=== PATIENT | female | born 1985 | race Caucasian/White ===

== ENCOUNTER 2017-07-28 02:53 | Inpatient (IN) | payer BC, OTHER ==
[~2017-07-28] VITALS: Ht 162.6 cm; Wt 68.9 kg
[2017-07-28 04:00] VITALS: BP 131/80
[2017-07-28] MEDS ORDERED: BUPRENORPHINE HCL 2 MG TAB.SUBL SL PRN (04:30)
[2017-07-28] MEDS ORDERED: ONDANSETRON 4 MG/2 ML VIAL IM PRN (04:30)
[2017-07-28] MEDS ORDERED: ONDANSETRON ODT 4 MG TAB.RAPDIS SL PRN (04:30)
[2017-07-28] MEDS ORDERED: ACETAMINOPHEN 325 MG TABLET PO PRN (04:30)
[2017-07-28] MEDS ORDERED: DICYCLOMINE HCL 20 MG TABLET PO PRN (04:30)
[2017-07-28] MEDS ORDERED: LOPERAMIDE HCL 2 MG CAPSULE PO PRN ×2 (04:30)
[2017-07-28] MEDS ORDERED: MAG HYDROX/AL HYDROX/SIMETH 30 ML LIQUID UDC PO PRN (04:30)
[2017-07-28] MEDS ORDERED: MIRALAX 17 GM POWD.PACK PO PRN (04:30)
[2017-07-28] MEDS ORDERED: diphenhydrAMINE 50 MG CAPSULE PO PRN (04:30)
[2017-07-28] MEDS ORDERED: MAGNESIUM HYDROXIDE 30 ML LIQUID UDC PO PRN (04:30)
[2017-07-28 04:45] LABS: *URINE HCG, QUAL NEGATIVE (NEGATIVE)
[2017-07-28] MEDS: IBUPROFEN 600 MG TABLET PO PRN (04:51)
[2017-07-28] MEDS: METHOCARBAMOL 750 MG TABLET PO PRN (04:51)
[2017-07-28 04:53] LABS: *AMPHETAMINE, URINE POSITIVE (NEGATIVE); *BARBITURATE, URINE NEGATIVE (NEGATIVE); *CANNABINOID, URINE NEGATIVE (NEGATIVE); *COCCAINE, URINE NEGATIVE (NEGATIVE); *OPIATE, URINE POSITIVE (NEGATIVE); *PHENCYCLIDINE SCREEN,URINE NEGATIVE (NEGATIVE)
[2017-07-28] MEDS ORDERED: CLON1PAT TD (05:31)
[2017-07-28 08:00] VITALS: BP 104/62
[2017-07-28] MEDS: MULTIVITAMINS,THERAPEUTIC TABLET PO SCH (09:06)
[2017-07-28] MEDS ORDERED: HYDROXYZINE PAMOATE 25 MG CAPSULE PO PRN (09:30)
[2017-07-28] MEDS ORDERED: LORAZEPAM 1 MG TABLET PO PRN (09:30)
[2017-07-28] MEDS ORDERED: CLONIDINE HCL 0.1 MG TABLET PO PRN (09:30)
[2017-07-28] MEDS ORDERED: GABA-532 PO (09:44)
[2017-07-28 10:18] LABS: ETHANOL < 3 MG/DL (0-0)
[2017-07-28 10:22] LABS: BASOPHILS % (AUTO) 0.3 % (0.0-2.0); EOSINOPHILS # (AUTO) 0.7 K/uL (0.0-0.7); EOSINOPHILS % (AUTO) 6.6 % (0.0-7.0); HEMATOCRIT 40.8 % (31.2-41.9); HEMOGLOBIN 13.5 g/dL (10.9-14.3); LYMPHOCYTES # (AUTO) 3.6 K/uL (20.0-40.0); LYMPHOCYTES % (AUTO) 32.4 % (20.5-51.5); MEAN CORPUSCULAR HGB CONC 33 g/dL (32.3-35.6); MEAN CORPUSCULAR VOLUME 84.4 fL (75.5-95.3); MONOCYTES # (AUTO) 0.8 K/uL (2.0-10.0); MONOCYTES % (AUTO) 6.8 % (0.0-11.0); NEUTROPHILS % (AUTO) 53.9 % (38.5-71.5); PLATELET COUNT (AUTO) 343 K/uL (179-408); RED BLOOD CELL COUNT(AUTO) 4.83 MIL/uL (3.63-4.92); WHITE BLOOD COUNT (AUTO) 11.2 K/uL (3.8-11.8)
[2017-07-28 10:25] LABS: ALANINE AMINOTRANSFERASE 36 U/L (14-59); ALKALINE PHOSPHATASE 82 U/L (50-136); AMYLASE 22 U/L (25-115); ASPARTATE AMINOTRANSFERASE 42 U/L (15-37); BILIRUBIN,TOTAL 0.2 mg/dL (0.2-1.0); CARBON DIOXIDE 26 mmol/L (21-32); CHLORIDE 107 mmol/L (98-107); CREATININE 0.7 mg/dL (0.6-1.3); GLUCOSE 105 mg/dL (74-106); LIPASE 100 U/L (73-393); MAGNESIUM 1.9 mg/dL (1.8-2.4); POTASSIUM 3.9 mmol/L (3.5-5.1); TOTAL PROTEIN, SERUM 6.2 g/dL (6.4-8.2); UREA NITROGEN, BLOOD 11 mg/dL (7-18)
[2017-07-28 10:36] LABS: THYROID STIMULATING HORMONE 0.949 mIU/mL (0.358-3.740)
[2017-07-28 12:00] VITALS: BP 117/75
[2017-07-28] MEDS: BUPRENORPHINE HCL 2 MG TAB.SUBL SL SCH ×3 (12:02→21:36)
[2017-07-28 16:00] VITALS: BP 132/88
[2017-07-28 20:00] VITALS: BP 109/63
[2017-07-28] MEDS: GABAPENTIN 300 MG CAPSULE PO SCH (21:35)
[2017-07-29] VITALS: BP 115/65
[2017-07-29 04:00] VITALS: BP 123/67
[2017-07-29 08:00] VITALS: BP 127/85
[2017-07-29 08:07] LABS: HEPATITIS B SURFACE AG Negative (Negative)
[2017-07-29] MEDS: GABAPENTIN 300 MG CAPSULE PO SCH ×3 (08:55→21:07)
[2017-07-29] MEDS: MULTIVITAMINS,THERAPEUTIC TABLET PO SCH (08:55)
[2017-07-29] MEDS ORDERED: TUBERCULIN,PURIF.PROT.DERIV. 5 TU/0.1 ML TEST ID ONE (09:00)
[2017-07-29] MEDS ORDERED: BUPRENORPHINE HCL 2 MG TAB.SUBL SL SCH (09:00)
[2017-07-29] MEDS: IBUPROFEN 600 MG TABLET PO PRN (09:02)
[2017-07-29 12:00] VITALS: BP 118/65
[2017-07-29] MEDS: BUPRENORPHINE HCL 2 MG TAB.SUBL SL SCH ×2 (14:09→21:06)
[2017-07-29] MEDS: KETOROLAC TROMETHAMINE 30 MG INJ IM PRN (14:17)
[2017-07-29 16:00] VITALS: BP 91/53
[2017-07-29 20:00] VITALS: BP 116/75
[2017-07-29] MEDS: AMOXICILLIN-CLAVUL 875-125MG TABLET PO SCH (21:06)
[2017-07-29] MEDS: LACTOBACILLUS RHAMNOSUS GG 1 EACH CAPSULE PO SCH (21:06)
[2017-07-29] MEDS: BENZOCAINE ORAL CARE 12 ML BOTTLE MM PRN (21:07)
[2017-07-30] VITALS: BP 108/73
[2017-07-30 04:00] VITALS: BP 105/63
[2017-07-30 08:00] VITALS: BP 80/52
[2017-07-30] MEDS: LACTOBACILLUS RHAMNOSUS GG 1 EACH CAPSULE PO SCH ×2 (08:38→20:14)
[2017-07-30] MEDS: BENZOCAINE ORAL CARE 12 ML BOTTLE MM PRN ×2 (08:39→20:15)
[2017-07-30] MEDS: AMOXICILLIN-CLAVUL 875-125MG TABLET PO SCH ×2 (08:39→20:14)
[2017-07-30] MEDS: MULTIVITAMINS,THERAPEUTIC TABLET PO SCH (08:39)
[2017-07-30] MEDS: GABAPENTIN 300 MG CAPSULE PO SCH ×2 (08:39→14:29)
[2017-07-30] MEDS: BUPRENORPHINE HCL 2 MG TAB.SUBL SL SCH ×3 (08:40→20:14)
[2017-07-30] MEDS: KETOROLAC TROMETHAMINE 30 MG INJ IM PRN ×2 (08:52→20:15)
[2017-07-30] MEDS: METHOCARBAMOL 750 MG TABLET PO PRN (08:52)
[2017-07-30 12:00] VITALS: BP 94/60
[2017-07-30] MEDS: DICYCLOMINE HCL 20 MG TABLET PO SCH ×2 (14:29→20:13)
[2017-07-30] MEDS: BACLOFEN 10 MG TABLET PO SCH ×2 (14:29→20:13)
[2017-07-30] MEDS: IBUPROFEN 600 MG TABLET PO PRN (14:29)
[2017-07-30 16:00] VITALS: BP 117/70
[2017-07-30 20:00] VITALS: BP 110/70
[2017-07-30] MEDS: CLONIDINE HCL 0.1 MG TABLET PO SCH (20:13)
[2017-07-30] MEDS ORDERED: GABAPENTIN 300 MG CAPSULE PO SCH (21:00)
[2017-07-31] VITALS: BP 114/65
[2017-07-31 04:00] VITALS: BP 110/67
[2017-07-31 08:00] VITALS: BP 94/63
[2017-07-31] MEDS: GABAPENTIN 300 MG CAPSULE PO SCH ×3 (08:51→20:13)
[2017-07-31] MEDS: CLONIDINE HCL 0.1 MG TABLET PO SCH ×3 (08:52→20:13)
[2017-07-31] MEDS: MULTIVITAMINS,THERAPEUTIC TABLET PO SCH (08:52)
[2017-07-31] MEDS: BACLOFEN 10 MG TABLET PO SCH (08:53)
[2017-07-31] MEDS: LACTOBACILLUS RHAMNOSUS GG 1 EACH CAPSULE PO SCH ×2 (08:53→20:13)
[2017-07-31] MEDS: AMOXICILLIN-CLAVUL 875-125MG TABLET PO SCH ×2 (08:53→20:14)
[2017-07-31] MEDS: DICYCLOMINE HCL 20 MG TABLET PO SCH ×3 (08:53→20:13)
[2017-07-31] MEDS: BENZOCAINE ORAL CARE 12 ML BOTTLE MM PRN (08:54)
[2017-07-31] MEDS ORDERED: BUPRENORPHINE HCL 2 MG TAB.SUBL SL SCH (09:00)
[2017-07-31 12:00] VITALS: BP 94/61
[2017-07-31] MEDS: ALBUTEROL SULFATE 1.25 MG/3 ML NEBU NEB PRN (13:28)
[2017-07-31] MEDS: BUPRENORPHINE HCL 2 MG TAB.SUBL SL SCH ×2 (14:12→20:12)
[2017-07-31] MEDS: BACLOFEN 20 MG TABLET PO SCH ×2 (14:12→20:13)
[2017-07-31 16:31] VITALS: BP 104/56
[2017-07-31] MEDS ORDERED: BACL20TA PO (16:56)
[2017-07-31] MEDS ORDERED: CLON0.1T14 PO (16:56)
[2017-07-31] MEDS ORDERED: GABA-534 PO (16:56)
[2017-07-31] MEDS ORDERED: HYDR-3895 PO (16:56)
[2017-07-31] MEDS ORDERED: IBUP-1955 PO (16:56)
[2017-07-31] MEDS ORDERED: DICY20TA28 PO (16:56)
[2017-07-31] MEDS ORDERED: DIPH50CA37 PO (16:56)
[2017-07-31] MEDS ORDERED: ONDA4TAB11 SL (16:56)
[2017-07-31] MEDS: IBUPROFEN 600 MG TABLET PO PRN (17:01)
[2017-07-31 20:00] VITALS: BP 106/63
[2017-08-01] VITALS: BP 102/66
[2017-08-01 04:00] VITALS: BP 106/67
[2017-08-01 08:00] VITALS: BP 101/67
[2017-08-01] MEDS: LACTOBACILLUS RHAMNOSUS GG 1 EACH CAPSULE PO SCH ×2 (08:29→21:14)
[2017-08-01] MEDS: CLONIDINE HCL 0.1 MG TABLET PO SCH ×2 (08:29→14:12)
[2017-08-01] MEDS: GABAPENTIN 300 MG CAPSULE PO SCH ×3 (08:31→21:14)
[2017-08-01] MEDS: BACLOFEN 20 MG TABLET PO SCH ×3 (08:31→21:12)
[2017-08-01] MEDS: DICYCLOMINE HCL 20 MG TABLET PO SCH ×3 (08:31→21:14)
[2017-08-01] MEDS: MULTIVITAMINS,THERAPEUTIC TABLET PO SCH (08:31)
[2017-08-01] MEDS: KETOROLAC TROMETHAMINE 30 MG INJ IM PRN ×3 (08:34→22:04)
[2017-08-01] MEDS: AMOXICILLIN-CLAVUL 875-125MG TABLET PO SCH ×2 (08:40→21:59)
[2017-08-01] MEDS ORDERED: BUPRENORPHINE HCL 2 MG TAB.SUBL SL SCH ×3 (09:00→21:00)
[2017-08-01] MEDS: ALBUTEROL SULFATE 1.25 MG/3 ML NEBU NEB PRN (10:40)
[2017-08-01 12:00] VITALS: BP 106/60
[2017-08-01 16:00] VITALS: BP 100/58
[2017-08-01 20:00] VITALS: BP 94/40
[2017-08-01] MEDS ORDERED: CLONIDINE HCL 0.2 MG TABLET PO SCH (21:00)
[2017-08-02] VITALS: BP 90/43
[2017-08-02 04:00] VITALS: BP 118/72
[2017-08-02 08:00] VITALS: BP 108/62
[2017-08-02] MEDS ORDERED: BUPRENORPHINE HCL 2 MG TAB.SUBL SL SCH (09:00)
[2017-08-02] MEDS: AMOXICILLIN-CLAVUL 875-125MG TABLET PO SCH ×2 (09:15→21:31)
[2017-08-02] MEDS: MULTIVITAMINS,THERAPEUTIC TABLET PO SCH (09:16)
[2017-08-02] MEDS: LACTOBACILLUS RHAMNOSUS GG 1 EACH CAPSULE PO SCH ×2 (09:16→21:31)
[2017-08-02] MEDS: GABAPENTIN 300 MG CAPSULE PO SCH (09:16)
[2017-08-02] MEDS: DICYCLOMINE HCL 20 MG TABLET PO SCH ×3 (09:16→21:31)
[2017-08-02] MEDS: BACLOFEN 20 MG TABLET PO SCH ×3 (09:16→21:31)
[2017-08-02] MEDS: CLONIDINE HCL 0.1 MG TABLET PO SCH ×3 (09:17→21:32)
[2017-08-02 12:18] VITALS: BP 101/60
[2017-08-02] MEDS: GABAPENTIN 400 MG CAPSULE PO SCH ×2 (15:19→21:31)
[2017-08-02 16:00] VITALS: BP 98/60
[2017-08-02] MEDS: KETOROLAC TROMETHAMINE 30 MG INJ IM PRN (16:28)
[2017-08-02 20:00] VITALS: BP 118/62
[2017-08-03 08:00] VITALS: BP 98/60
[2017-08-03] MEDS: DICYCLOMINE HCL 20 MG TABLET PO SCH (08:26)
[2017-08-03] MEDS: MULTIVITAMINS,THERAPEUTIC TABLET PO SCH (08:26)
[2017-08-03] MEDS: IBUPROFEN 600 MG TABLET PO PRN (08:26)
[2017-08-03] MEDS: LACTOBACILLUS RHAMNOSUS GG 1 EACH CAPSULE PO SCH (08:26)
[2017-08-03] MEDS: AMOXICILLIN-CLAVUL 875-125MG TABLET PO SCH (08:26)
[2017-08-03] MEDS: GABAPENTIN 400 MG CAPSULE PO SCH (08:26)
[2017-08-03] MEDS: BACLOFEN 20 MG TABLET PO SCH (08:27)
== END 2017-08-03 09:25 | DRG 895 ==
LOC: EDSEX → SRC 02:53
PROVIDERS: ADMIT Internal Medicine; ATTEND Internal Medicine
PROC: HZ2ZZZZ Detoxification Services for Substance Abuse Treatment (ICD-10-PCS; principal; 2017-07-28)
PROC: HZ31ZZZ Individual Counseling for Substance Abuse Treatment, Behavioral (ICD-10-PCS; 2017-07-31)
PROC: HZ41ZZZ Group Counseling for Substance Abuse Treatment, Behavioral (ICD-10-PCS; 2017-08-01)
DX: F11.23 Opioid dependence with withdrawal (principal); Z86.74 Personal history of sudden cardiac arrest; F15.23 Other stimulant dependence with withdrawal; F41.9 Anxiety disorder, unspecified; F32.9 Major depressive disorder, single episode, unspecified; K04.7 Periapical abscess without sinus; J45.20 Mild intermittent asthma, uncomplicated; Z87.410 Personal history of cervical dysplasia; Z86.718 Personal history of other venous thrombosis and embolism; Z83.3 Family history of diabetes mellitus; Z81.1 Family history of alcohol abuse and dependence; F17.210 Nicotine dependence, cigarettes, uncomplicated; F90.9 Attention-deficit hyperactivity disorder, unspecified type; M50.80 Other cervical disc disorders, unspecified cervical region
CPT/HCPCS: 36415; 70030-TC; 80307; 80324; 80361; 83690; 83735; 84443; 84703; 85025; 86580; 86592; 86705; 86803; 87340; 87806; 94640; 94664; A4663; A9150; G0480; J1885; Q0162